=== PATIENT | female | born 1985 | race Caucasian/White ===

== ENCOUNTER → 2018-03-14 12:13 | Outpatient (CLI) | payer OTHER, SELFPAY ==
[2018-03-14 13:01] LABS: Add Manual Diff / Slide Review NO; Basophils Percent Auto 0.3 % (0-2); Eosinophils Percent Auto 0.5 % (2-4); Hematocrit 36.3 % (36-46); Hemoglobin 12.6 g/dL (12.0-16.0); Lymphocytes Percent Auto 23.9 % (25-40); Mean Corpuscular HGB Conc 34.7 % (30-36); Mean Corpuscular Hemoglobin 31.5 PG (26-34); Mean Corpuscular Volume 90.8 fL (80-100); Monocytes Percent Auto 8.1 % (3-14); Neutrophils Absolute Auto 6500 /uL (3000-5900); Neutrophils Percent Auto 67.2 % (50-75); Platelet Count 200 X10^3/uL (150-400); Red Blood Cell Count 3.99 X10^6/uL (4.0-5.2); Red Cell Distribution Width 12.6 % (11.6-14.8); White Blood Cell Count 9.7 X10^3/uL (4.5-11.0)
[2018-03-14 15:51] LABS: Hepatitis B Surface Antigen NEGATIVE s/c (NEGATIVE)
[2018-03-14 16:07] LABS: HIV 1 and 2 Antibody NEGATIVE (NEGATIVE); Hep C Virus Ab w/Reflex Quant NEGATIVE s/c (NEGATIVE)
[2018-03-16 14:04] LABS: HSV 2 IGG AB < 0.90 index (< 0.90)
[2018-03-19 18:22] LABS: Rapid Plasma Reagin NON-REACTIVE
== END ==
PROVIDERS: Visit Provider Obstetrics & Gynecology
DX: Z34.92 Encounter for supervision of normal pregnancy, unspecified, second trimester (principal)
CPT/HCPCS: 36415; 80055; 86695; 86696; 86703; 86787; 86803; 86850; 86900; 86901; 87086

== ENCOUNTER → 2018-03-23 11:53 | Outpatient (CLI) | payer OTHER, SELFPAY ==
--- NOTE | 2018-03-23 11:55 | DI.US.S_ITS ---
PROCEDURE: US OB >= 14 WEEKS FETUS INDICATIONS: ANATOMY OUTSIDE/PRIOR DATING DATA: Last menstrual period (LMP): Unknown. LMP-based estimated date of delivery (TIAGO): N./A.. First dating scan (date and location): 03/23/2018. Estimated date of delivery (TIAGO) from first dating scan: 08/05/2018. TECHNIQUE: Real-time scanning was performed of the fetus, with image documentation and biometric measurements. Endovaginal scanning: Not required COMPARISON: None. FINDINGS: General: A single living intrauterine gestation is present. Presentation: Transverse with head to the maternal right. Placenta: Placental position is anterior, without previa. Amniotic fluid index: 17.5 cm, normal range is 5-24 cm. heart rate: 139 beats per minute. Maternal cervical canal: 3.7 cm long. Normal lower limit is 2.5 cm. biometrics: Biparietal diameter: 21 weeks one day Head circumference: 20 weeks 3 days Abdominal circumference: 20 weeks 6 days Femur length: 20 weeks 2 days Estimated gestational age from initial scan: not applicable. Composite gestational age from present scan: 20 weeks 5 days Estimated weight and percentile: 367 g Measurement variability for biometric dating: +/- 7 days from 14 weeks to 15 weeks 6 days gestation, +/- 10 days from 16 weeks to 21 weeks 6 days gestation, +/- 2 weeks from 22 weeks to 27 weeks 6 days gestation, +/- 3 weeks for 28 weeks gestation or later. weight reference: 4500 g or EFW >90/95% is considered macrosomia or large for gestational age. EFW <10% is small for gestational age. EFW 5% or less is considered intra-uterine growth restriction. Anatomic survey: Neuro: Ventricles are non-dilated at less than 10 mm. Cisterna magna is normal at 3-11 mm. Cerebellum is normal in size and morphology. Nuchal skin fold: Normal at less than 6 mm between 14-21 weeks gestational age. Face: Nose and lips, facial profile are normal. Spine: No evidence for spina bifida. Heart: 4-chambered heart is present, with normal ventricular outflow tracts. Diaphragm: Diaphragm is intact. Stomach: Left-sided stomach is present. Kidneys: No hydronephrosis. Normal is less than 5 mm in 2nd trimester, less than 7 mm in 3rd trimester. Cord: 3-vessel cord has orthotopic insertion. Bladder: Normal in size. Extremities: All 4 extremities identified. IMPRESSION: Single, live intrauterine gestation in transverse lie showing composite gestational age of 20 weeks 5 days, and normal anatomy Dictated by: Pascual Sands M.D. on 03/23/2018 at 13:05 Approved by: Pascual Sands M.D. on 03/23/2018 at 13:08
== END ==
PROVIDERS: PCP Obstetrics & Gynecology; Visit Provider Obstetrics & Gynecology
DX: Z34.92 Encounter for supervision of normal pregnancy, unspecified, second trimester (principal); Z36.89 Encounter for other specified antenatal screening; Z3A.20 20 weeks gestation of pregnancy
CPT/HCPCS: 76811

== ENCOUNTER → 2018-05-18 10:29 | Outpatient (CLI) | payer OTHER, SELFPAY ==
[2018-05-18 12:01] LABS: Hematocrit 33.8 % (36-46); Hemoglobin 11.6 g/dL (12.0-16.0)
[2018-05-18 12:17] LABS: GTT (PREG) 1 Hour PP 50gm Dose 116 mg/dL (76-139)
== END ==
PROVIDERS: PCP Obstetrics & Gynecology; Visit Provider Obstetrics & Gynecology
DX: Z34.82 Encounter for supervision of other normal pregnancy, second trimester (principal)
CPT/HCPCS: 82950; 85014; 85018

== ENCOUNTER → 2018-07-19 09:35 | Outpatient (CLI) | payer OTHER, SELFPAY ==
[2018-07-20 08:42] LABS: Strep Grp B PCR NEG for Grp B Strep
== END ==
PROVIDERS: PCP Obstetrics & Gynecology; Visit Provider Obstetrics & Gynecology
DX: Z34.83 Encounter for supervision of other normal pregnancy, third trimester (principal)
CPT/HCPCS: 87653

== ENCOUNTER 2018-08-08 11:00 | Outpatient (CLI) | payer OTHER, SELFPAY | END 2018-08-08 12:25 | disposition home or self-care (01) | LOC: OB 08-09 14:27 | PROVIDERS: PCP Obstetrics & Gynecology; Visit Provider Obstetrics & Gynecology | DX: O36.8130 Decreased fetal movements, third trimester, not applicable or unspecified (principal); Z3A.40 40 weeks gestation of pregnancy | CPT/HCPCS: 59025; G0378; G0379 ==

== ENCOUNTER 2018-08-09 02:28 | Inpatient (IN) | payer OTHER, SELFPAY ==
[2018-08-09 03:25] LABS: Hematocrit 36.5 % (36-46); Hemoglobin 12.3 g/dL (12.0-16.0); Mean Corpuscular HGB Conc 33.8 % (30-36); Mean Corpuscular Hemoglobin 30.6 PG (26-34); Mean Corpuscular Volume 90.4 fL (80-100); Platelet Count 171 X10^3/uL (150-400); Red Blood Cell Count 4.04 X10^6/uL (4.0-5.2); Red Cell Distribution Width 12.9 % (11.6-14.8)
[2018-08-09] MEDS: LACTATED RINGERS 1,000 ML 1000 ML IV (04:18)
[2018-08-09 04:27] VITALS: BP 123/71
[2018-08-09 04:41] LABS: Neutrophils Absolute Manual 12920 /uL (3000-5900); Total Cells Counted 100
[2018-08-09 04:42] LABS: RBC Morphology Normal Morphology
[2018-08-09] MEDS: OXYTOCIN PREMIX 30 UNIT/500 ML PLAST..BAG IV (11:43)
[2018-08-10] MEDS: IBUPROFEN 600 MG TABLET PO (02:57)
[2018-08-10 06:51] LABS: Hematocrit 29.3 % (36-46); Hemoglobin 10.2 g/dL (12.0-16.0)
[2018-08-10 08:28] VITALS: BP 96/55; PULSE 96; RESP 16; TEMP 36.7
[2018-08-10] MEDS: DOCUSATE 250 MG CAPSULE PO (08:37)
[2018-08-10] MEDS: PRENATAL VIT,CALC/IRON/FOLIC 1 TABLET 1 TAB PO (08:38)
[2018-08-10 12:36] VITALS: BP 96/55; PULSE 96; RESP 16; TEMP 36.7
--- NOTE | 2018-09-29 13:57 | PM.OBPRVD ---
Delivery date: 08/09/18 Cervical ripening method: none Induction method: none Delivery augmentation: pitocin Delivery monitor: external FHT and external uterine Route of delivery: Episiotomy description: None L&D Laceration Description: Vaginal - 1st Degree Delivery repair: chromic Estimated blood loss (mL): 150 Anesthesia type: Epidural Complications: None Narrative: Patient complete and pushed for 10 min. At 2:56 p.m., a live female delivered spontaneously over an intact perineum. No nuchal cord. The remainder of the body delivered without difficulty and was placed on mom's abdomen. The cord was double clamped and cut. Cord bloods were obtained. The placenta delivered intact with a 3 vessel cord at 3:06 p.m.. Fundus was massaged to firm. Pitocin was given in the IV fluids. Apgars 8 at 1 min and 9 at 5 min. Weight 7 lb 8.46 oz. Epidural analgesia. . Mom and infant stable to recovery.
== END 2018-08-10 12:30 | disposition home or self-care (01) | DRG 807 ==
PROVIDERS: Admitting Provider Obstetrics & Gynecology; PCP Obstetrics & Gynecology; Visit Provider Obstetrics & Gynecology
DX: O70.0 First degree perineal laceration during delivery (principal); Z37.0 Single live birth; Z3A.40 40 weeks gestation of pregnancy
CPT/HCPCS: 01967; 36415; 59050; 59410; 85014; 85018; 85025; 86850; 86900; 86901; G0379; J2590